=== PATIENT | female | born 1940 | race Caucasian/White ===

== ENCOUNTER 2017-10-02 08:20 | Day surgery (SDC) | payer OTHER ==
[2017-10-02] MEDS: TETRACAINE 0.5% UNIT-DOSE OP PRN ×2 (09:05→10:04)
[2017-10-02] MEDS: BETADINE OPTH PREP OP PRN ×2 (09:05→10:04)
[2017-10-02] MEDS: CYCLOGYL 2% OPTH OP PRN ×3 (09:05→09:15)
[2017-10-02] MEDS ORDERED: LIDOCAINE 1% 20 ML MDV ID STA (09:19)
[2017-10-02] MEDS ORDERED: ZOFRAN 4 MG/2 ML IVP ONE (09:19)
[2017-10-02] MEDS ORDERED: DEX-MOXI-KETOR OPTH INJ 1/0.5/0.4 MG/ML IO ONE (09:19)
[2017-10-02] MEDS ORDERED: BRIMONIDINE TARTRATE 0.2% OPTH SOL OP PRN (09:19)
[2017-10-02] MEDS ORDERED: LIDOCAINE 1%/PHENYLEPHRINE 1.5% BSS (SURGERY) INTRAOCULA ONE (09:19)
[2017-10-02] MEDS ORDERED: BSS WITH EPINEPHRINE OP ONE (09:19)
[2017-10-02] MEDS ORDERED: VERSED ONE (10:10)
[2017-10-02] MEDS ORDERED: SUBLIMAZE ONE (10:10)
[2017-10-02 12:43] VITALS: TEMP 97.8
[2017-10-02 13:57] VITALS: BP 127/62
== END 2017-10-02 10:55 | disposition home or self-care (01) ==
LOC: SURG 08:20
PROVIDERS: ATTEND Ophthalmology
DX: H25.812 Combined forms of age-related cataract, left eye (principal)

== ENCOUNTER 2017-10-17 08:22 | Day surgery (SDC) | payer OTHER ==
[2017-10-17] MEDS: BETADINE OPTH PREP OP PRN ×2 (09:40→10:15)
[2017-10-17] MEDS: TETRACAINE 0.5% UNIT-DOSE OP PRN ×2 (09:40→10:13)
[2017-10-17] MEDS: CYCLOGYL 2% OPTH OP PRN ×3 (09:41→09:51)
[2017-10-17] MEDS ORDERED: LIDOCAINE 1%/PHENYLEPHRINE 1.5% BSS (SURGERY) INTRAOCULA ONE (09:46)
[2017-10-17] MEDS ORDERED: DEX-MOXI-KETOR OPTH INJ 1/0.5/0.4 MG/ML IO ONE (09:46)
[2017-10-17] MEDS ORDERED: ZOFRAN 4 MG/2 ML IVP ONE (09:46)
[2017-10-17] MEDS ORDERED: LIDOCAINE 1% 20 ML MDV ID STA (09:46)
[2017-10-17] MEDS ORDERED: BSS WITH EPINEPHRINE OP ONE (09:46)
[2017-10-17] MEDS ORDERED: BRIMONIDINE TARTRATE 0.2% OPTH SOL OP PRN (09:46)
[2017-10-17 09:55] VITALS: TEMP 98.6
[2017-10-17] MEDS ORDERED: VERSED ONE (10:17)
[2017-10-17] MEDS ORDERED: SUBLIMAZE ONE (10:17)
[2017-10-22 09:06] VITALS: BP 118/67
== END 2017-10-17 11:00 | disposition home or self-care (01) ==
LOC: SURG 08:22
PROVIDERS: ATTEND Ophthalmology
DX: H25.811 Combined forms of age-related cataract, right eye (principal)